=== PATIENT | male | born 1955 | race Caucasian/White ===

== ENCOUNTER 2020-01-03 10:41 | Emergency (ER) | payer OTHER ==
[~2020-01-03] VITALS: Ht 172.7 cm; Wt 68.5 kg
[2020-01-03] MEDS ORDERED: ZOLOFT50 MG PO (11:17)
[2020-01-03] MEDS ORDERED: ORPHENADRINE C100 MG PO (15:06)
[2020-01-03] MEDS ORDERED: KETO10TA2 PO (15:06)
== END 2020-01-03 15:41 | disposition home or self-care (01) ==
LOC: ER 10:41
DX: S13.4XXA Sprain of ligaments of cervical spine, initial encounter (principal); S33.5XXA Sprain of ligaments of lumbar spine, initial encounter; V49.9XXA Car occupant (driver) (passenger) injured in unspecified traffic accident, initial encounter; Y93.89 Activity, other specified; Y92.488 Other paved roadways as the place of occurrence of the external cause; Y99.8 Other external cause status